=== PATIENT | female | born 1985 | race Caucasian/White ===

== ENCOUNTER 2017-12-03 16:16 | Emergency (ER) | payer SELFPAY ==
[~2017-12-03] VITALS: Ht 162.6 cm; Wt 119.4 kg
[2017-12-03 16:17] VITALS: BP 108/74
[2017-12-03] MEDS ORDERED: KETOROLAC 30 MG/1 ML ONE (16:45)
[2017-12-03] MEDS ORDERED: KETOROLAC 30 MG/1 ML IM ONE (17:00)
== END 2017-12-03 17:15 | disposition home or self-care (01) ==
LOC: ED 17:09
DX: S42.255A Nondisplaced fracture of greater tuberosity of left humerus, initial encounter for closed fracture (principal); W19.XXXA Unspecified fall, initial encounter; Y93.89 Activity, other specified; Y99.8 Other external cause status; Y92.099 Unspecified place in other non-institutional residence as the place of occurrence of the external cause
CPT/HCPCS: 29105; 73030; 73060; 96372; 99284; J1885